=== PATIENT | male | born 1990 | race Caucasian/White ===

== ENCOUNTER 2024-01-07 08:58 | Emergency (ER) | payer SELFPAY | END 2024-01-07 11:11 | disposition home or self-care (01) | LOC: ERS 08:58 | DX: S33.8XXA Sprain of other parts of lumbar spine and pelvis, initial encounter (principal); V43.53XA Car driver injured in collision with pick-up truck in traffic accident, initial encounter; W22.11XA Striking against or struck by driver side automobile airbag, initial encounter; Y93.89 Activity, other specified | CPT/HCPCS: 71045; 72220 ==